=== PATIENT | male | born 1940 | race Caucasian/White ===

== ENCOUNTER 2018-08-28 17:27 | Inpatient (IN) | payer MEDICARE, OTHER ==
[2018-08-28] MEDS ORDERED: SODIUM CHLORIDE 0.9% 1,000 ML IV ONE (17:48)
[2018-08-28] MEDS ORDERED: FAMOTIDINE 20 MG/2 ML VIAL IV STA (18:05)
--- NOTE | 2018-08-28 18:13 | ED ---
URI HPI - General Chief Complaint: Upper Respiratory Infection Stated Complaint: Abd Pain, Chest Pain Time Seen by Provider: 08/28/18 17:37 Source: patient Mode of arrival: ambulatory Limitations: no limitations - History of Present Illness Initial Comments: 78-year-old male patient presents to the emergency department today for evaluation of cough and midepigastric abdominal pain. Patient states that for the last week he has been sick with upper respiratory symptoms including nasal drainage, cough, and congestion. Patient states that his cough has been worsening. States he is coughing up yellow sputum. Patient states he did see his primary care physician on was given a prescription for Mucinex D and methylprednisolone dosepak. Patient states that symptoms have not improved at all. Patient states he has had chills and is felt feverish but has not checked his temperature. States that he is now having discomfort to his midepigastric region and increase in his acid reflux. She denies any radiation of the pain to his back. He denies any vomiting but states he is unable to eat or drink. He states he is feeling dehydrated. Decreased urine output from this. Patient denies any recent rash, shortness breath, chest pain, numbness, tingling, dizziness, weakness, headache, visual changes, or any other complaints. - Related Data Home Medications Medication Instructions Recorded Confirmed Carvedilol [Coreg] 3.125 mg PO BID 03/24/14 08/28/18 Enalapril [Vasotec] 5 mg PO DAILY 03/24/14 08/28/18 Oxybutynin Xl [Ditropan XL] 5 mg PO DAILY 03/24/14 08/28/18 Atorvastatin [Lipitor] 20 mg PO DAILY 08/28/18 08/28/18 guaiFENesin-DM 600/30MG [Mucinex 1 tab PO Q12HR 08/28/18 08/28/18 Dm] methylPREDNISolone [Medrol Dose See Taper PO DIRECTED 08/28/18 08/28/18 Pack] Allergies Allergy/AdvReac Type Severity Reaction Status Date / Time Sulfa (Sulfonamide Allergy Rash/Hives Verified 08/28/18 17:48 Antibiotics) Review of Systems ROS Statement: Those systems with pertinent positive or pertinent negative responses have been documented in the HPI. ROS Other: All systems not noted in ROS Statement are negative. Past Medical History Past Medical History: Cancer, Hypertension, Prostate Disorder, Seizure Disorder , Vascular Disorder Additional Past Medical History / Comment(s): seizure in 1990 and 1992 none since then and no meds at this time History of Any Multi-Drug Resistant Organisms: None Reported Past Surgical History: Back Surgery, Joint Replacement, Orthopedic Surgery, Prostate Surgery Additional Past Surgical History / Comment(s): bilat knee replacement and prostate removed for cancer Past Anesthesia/Blood Transfusion Reactions: No Reported Reaction Past Psychological History: No Psychological Hx Reported Smoking Status: Former smoker Past Alcohol Use History: Rare Past Drug Use History: None Reported - Past Family History Father Family Medical History: Hypertension Additional Family Medical History / Comment(s): of stroke General Exam Limitations: no limitations General appearance: alert, in no apparent distress, other (This is a well- developed, well-nourished elderly male patient in no acute distress. Vital signs upon presentation are temperature 98.2F, pulse 85, respirations 18, blood pressure 148/85, pulse ox 94% on room air.) Eye exam: Present: normal appearance, PERRL, EOMI. Absent: scleral icterus, conjunctival injection, periorbital swelling ENT exam: Present: normal exam, normal oropharynx, mucous membranes moist, TM's normal bilaterally Respiratory exam: Present: normal lung sounds bilaterally. Absent: respiratory distress, wheezes, rales, rhonchi, stridor Cardiovascular Exam: Present: regular rate, normal rhythm, normal heart sounds. Absent: systolic murmur, diastolic murmur, rubs, gallop, clicks GI/Abdominal exam: Present: soft, normal bowel sounds. Absent: distended, tenderness, guarding, rebound, rigid Neurological exam: Present: alert, oriented X3, CN II-XII intact Psychiatric exam: Present: normal affect, normal mood Skin exam: Present: warm, dry, intact, normal color. Absent: rash Course Vital Signs 08/28/18 08/28/18 08/28/18 17:29 18:49 18:51 Temperature 98.2 F 98.8 F Pulse Rate 85 75 Respiratory 18 18 Rate Blood Pressure 148/85 134/104 O2 Sat by Pulse 94 L 96 98 Oximetry 08/28/18 08/28/18 08/28/18 19:01 20:00 21:07 Temperature 98.5 F Pulse Rate 75 80 Respiratory 20 16 Rate Blood Pressure 134/107 125/77 115/77 O2 Sat by Pulse 93 L 95 Oximetry Medical Decision Making - Medical Decision Making 78 year-old male patient presents to the emergency department today for complaints of cough, shortness of breath, and sputum production. Physical examination did reveal clear equal lung sounds. Labs reviewed and did reveal elevated white blood cell count at 11.6. Chest x-ray was obtained and did show a subtle developing pneumonia. Given patient's age and symptoms will admit for IV antibiotics. We will provide IV steroids. - Lab Data Result diagrams: 08/28/18 18:00 08/28/18 18:00 Lab Results 08/28/18 08/28/18 08/28/18 Range/Units 18:00 18:00 18:00 WBC 11.4 H (3.8-10.6) k/uL RBC 4.65 (4.30-5.90) m/uL Hgb 14.5 (13.0-17.5) gm/dL Hct 42.9 (39.0-53.0) % MCV 92.3 (80.0-100.0) fL MCH 31.2 (25.0-35.0) pg MCHC 33.8 (31.0-37.0) g/dL RDW 13.5 (11.5-15.5) % Plt Count 306 (150-450) k/uL Neutrophils % 82 % Lymphocytes % 9 % Monocytes % 6 % Eosinophils % 1 % Basophils % 0 % Neutrophils # 9.4 H (1.3-7.7) k/uL Lymphocytes # 1.0 (1.0-4.8) k/uL Monocytes # 0.7 (0-1.0) k/uL Eosinophils # 0.1 (0-0.7) k/uL Basophils # 0.0 (0-0.2) k/uL PT (9.0-12.0) sec INR (<1.2) APTT (22.0-30.0) sec Sodium 138 (137-145) mmol/L Potassium 4.5 (3.5-5.1) mmol/L Chloride 105 (98-107) mmol/L Carbon Dioxide 25 (22-30) mmol/L Anion Gap 8 mmol/L BUN 23 H (9-20) mg/dL Creatinine 0.67 (0.66-1.25) mg/dL Est GFR (CKD-EPI)AfAm >90 (>60 ml/min/1.73 sqM) Est GFR (CKD-EPI)NonAf >90 (>60 ml/min/1.73 sqM) Glucose 127 H (74-99) mg/dL Plasma Lactic Acid Tin (0.7-2.0) mmol/L Calcium 9.7 (8.4-10.2) mg/dL Total Bilirubin 0.8 (0.2-1.3) mg/dL AST 25 (17-59) U/L ALT 34 (21-72) U/L Alkaline Phosphatase 71 (38-126) U/L Troponin I (0.000-0.034) ng/mL Total Protein 7.3 (6.3-8.2) g/dL Albumin 4.3 (3.5-5.0) g/dL Influenza Type A RNA Not Detected (Not Detectd) Influenza Type B (PCR) Not Detected (Not Detectd) 08/28/18 08/28/18 08/28/18 Range/Units 18:00 18:00 18:00 WBC (3.8-10.6) k/uL RBC (4.30-5.90) m/uL Hgb (13.0-17.5) gm/dL Hct (39.0-53.0) % MCV (80.0-100.0) fL MCH (25.0-35.0) pg MCHC (31.0-37.0) g/dL RDW (11.5-15.5) % Plt Count (150-450) k/uL Neutrophils % % Lymphocytes % % Monocytes % % Eosinophils % % Basophils % % Neutrophils # (1.3-7.7) k/uL Lymphocytes # (1.0-4.8) k/uL Monocytes # (0-1.0) k/uL Eosinophils # (0-0.7) k/uL Basophils # (0-0.2) k/uL PT 10.6 (9.0-12.0) sec INR 1.0 (<1.2) APTT 23.2 (22.0-30.0) sec Sodium (137-145) mmol/L Potassium (3.5-5.1) mmol/L Chloride (98-107) mmol/L Carbon Dioxide (22-30) mmol/L Anion Gap mmol/L BUN (9-20) mg/dL Creatinine (0.66-1.25) mg/dL Est GFR (CKD-EPI)AfAm (>60 ml/min/1.73 sqM) Est GFR (CKD-EPI)NonAf (>60 ml/min/1.73 sqM) Glucose (74-99) mg/dL Plasma Lactic Acid Tin 1.0 (0.7-2.0) mmol/L Calcium (8.4-10.2) mg/dL Total Bilirubin (0.2-1.3) mg/dL AST (17-59) U/L ALT (21-72) U/L Alkaline Phosphatase (38-126) U/L Troponin I <0.012 (0.000-0.034) ng/mL Total Protein (6.3-8.2) g/dL Albumin (3.5-5.0) g/dL Influenza Type A RNA (Not Detectd) Influenza Type B (PCR) (Not Detectd) - Radiology Data Radiology results: report reviewed, image reviewed X-ray of the chest is obtained. Report was reviewed in its entirety. Impression by Dr. Roland shows subsegmental atelectasis at the bases, correlate to exclude pneumonia. Follow-up is recommended. Disposition Clinical Impression: Pneumonia Disposition: ADMITTED IP TO THIS [facility] Condition: Serious Decision to Admit Reason: Admit from EC Decision Date: 08/28/18 Decision Time: 19:42
[2018-08-28 18:16] LABS: Basophils % (A) 0 %; Eosinophils # (A) 0.1 k/uL (0-0.7); Eosinophils % (A) 1 %; HCT 42.9 % (39.0-53.0); HGB 14.5 gm/dL (13.0-17.5); Lymphocytes % (A) 9 %; MCH 31.2 pg (25.0-35.0); MCHC 33.8 g/dL (31.0-37.0); MCV 92.3 fL (80.0-100.0); Mean Platelet Volume 6.6; Monocytes # (A) 0.7 k/uL (0-1.0); Monocytes % (A) 6 %; Neutrophils # (A) 9.4 k/uL (1.3-7.7); Neutrophils % (A) 82 %; Platelet Count 306 k/uL (150-450); RBC 4.65 m/uL (4.30-5.90); RDW 13.5 % (11.5-15.5); WBC 11.4 k/uL (3.8-10.6)
[2018-08-28 18:27] LABS: Partial Thromboplastin Time 23.2 sec (22.0-30.0); Prothrombin Time 10.6 sec (9.0-12.0)
[2018-08-28 18:28] LABS: ALT 34 U/L (21-72); AST 25 U/L (17-59); Albumin 4.3 g/dL (3.5-5.0); Alkaline Phosphatase 71 U/L (38-126); Anion Gap 8 mmol/L; Blood Urea Nitrogen 23 mg/dL (9-20); Calcium 9.7 mg/dL (8.4-10.2); Carbon Dioxide 25 mmol/L (22-30); Chloride 105 mmol/L (98-107); Glucose 127 mg/dL (74-99); Potassium 4.5 mmol/L (3.5-5.1); Sodium 138 mmol/L (137-145); Total Bilirubin 0.8 mg/dL (0.2-1.3); Total Protein 7.3 g/dL (6.3-8.2)
--- NOTE | 2018-08-28 18:59 | XR ---
EXAMINATION TYPE: XR chest 2V DATE OF EXAM: 08/28/2018 COMPARISON: Prior chest x-ray 03/21/2014 HISTORY: Cough TECHNIQUE: Frontal and lateral views of the chest are obtained. FINDINGS: Patchy basilar density is noted. Heart is stable in size accounting for patient rotation. No evident pneumothorax. Postop change noted to the left shoulder. Arthropathy present in the right s houlder with probable chronic rotator cuff tear, shoulder is high riding. Aorta is dense. IMPRESSION: There is subsegmental atelectasis at the lung bases, correlate to exclude pneumonia. Fol low-up is recommended.
[2018-08-28] MEDS ORDERED: PNEUMONIA PROTOCOL UTILIZED 1 EACH MISC PO PRN (19:38)
[2018-08-28] MEDS ORDERED: methylPREDNISolone SOD SUCCI 125 MG/2 ML VIAL IV STA (19:41)
[2018-08-28] MEDS ORDERED: AZITHROMYCIN 500 MG in SODIUM CHLORIDE 0.9% 250 ML IVPB STA (19:43)
[2018-08-28] MEDS: SODIUM CHLORIDE 0.9% 1,000 ML IV SCH (20:08)
[2018-08-28] MEDS: guaiFENesin-DM 600/30MG 1 EACH TAB.ER.12H PO SCH (21:56)
[2018-08-28 23:14] VITALS: RESP 20
[2018-08-28] MEDS: methylPREDNISolone SOD SUCCI 125 MG/2 ML VIAL IV SCH (23:33)
[2018-08-29] MEDS: methylPREDNISolone SOD SUCCI 125 MG/2 ML VIAL IV SCH ×2 (06:04→11:16)
[2018-08-29 07:19] VITALS: BP 122/65; PULSE 75; TEMP 98.7
[2018-08-29] MEDS ORDERED: CARVEDILOL 3.125 MG TAB PO SCH (07:30)
[2018-08-29] MEDS: guaiFENesin-DM 600/30MG 1 EACH TAB.ER.12H PO SCH (07:42)
[2018-08-29] MEDS: SODIUM CHLORIDE 0.9% 1,000 ML IV SCH (07:43)
--- NOTE | 2018-08-29 08:04 | XR ---
EXAMINATION TYPE: XR chest 2V DATE OF EXAM: 08/29/2018 HISTORY: pneumonia. REFERENCE: Previous study dated 08/28/2018. FINDINGS: There is a left shoulder prosthesis in place. The lungs are overinflated. Heart size is normal. There is bibasilar atelectasis. I suspect small eff usions. IMPRESSION: NO INTERVAL CHANGE IN THE APPEARANCE OF THE CHEST.
[2018-08-29] MEDS ORDERED: LISINOPRIL 10 MG TAB PO SCH (09:00)
[2018-08-29] MEDS ORDERED: AZITHROMYCIN 500 MG TAB PO SCH (09:00)
[2018-08-29] MEDS ORDERED: ATORVASTATIN 20 MG TAB PO SCH (09:00)
[2018-08-29] MEDS ORDERED: OXYBUTYNIN XL 5 MG TAB.ER.24 PO SCH (09:00)
[2018-08-29] MEDS ORDERED: PANTOPRAZOLE 40 MG/10 ML VIAL IVP ONE (11:17)
--- NOTE | 2018-08-29 12:38 | P.HPIM ---
History of Present Illness 78-year-old pleasant gentleman came in to ER with compensative mid epigastric abdominal burning sensation patient was also having some uremic symptoms with the cough list with sputum production patient was given Z-Eddy without any significant improvement in symptoms patient had a chest x-ray showed atelectasis patient doesn't have any fevers. Patient was started on prednisone as well which is probably responsible for his acid reflux. Chest x-ray was done which showed atelectasis no evidence of pneumonia. I believe patient has bronchitis since he didn't respond to azithromycin although there is no evidence of Bactrim bronchitis because of continued symptoms all discharge him on Ceftin for 5 days. Patient will prescribed Prilosec as well there is no evidence of pneumonia at this time patient will be asked to do incentive spirometry at home for atelectasis. Patient denied any shortness of breath patient doesn't have any wheezing on exam. Patient was never diagnosed with COPD patient used to smoke 40 years ago. Review of Systems REVIEW OF SYSTEMS: CONSTITUTIONAL: No fever, no malaise, no fatigue. HEENT: No recent visual problems or hearing problems. Denied any sore throat. CARDIOVASCULAR: No chest pain, orthopnea, PND, no palpitations, no syncope. PULMONARY: No shortness of breath, no hemoptysis. GASTROINTESTINAL: No diarrhea, NEUROLOGICAL: No headaches, no weakness, no numbness. HEMATOLOGICAL: Denies any bleeding or petechiae. GENITOURINARY: Denies any burning micturition, frequency, or urgency. MUSCULOSKELETAL/RHEUMATOLOGICAL: Denies any joint pain, swelling, or any muscle pain. ENDOCRINE: Denies any polyuria or polydipsia. The rest of the 14-point review of systems is negative. Past Medical History Past Medical History: Cancer, Hypertension, Prostate Disorder, Seizure Disorder , Vascular Disorder Additional Past Medical History / Comment(s): seizure in 1990 and 1992 none since then and no meds at this time History of Any Multi-Drug Resistant Organisms: None Reported Past Surgical History: Back Surgery, Joint Replacement, Orthopedic Surgery, Prostate Surgery Additional Past Surgical History / Comment(s): bilat knee replacement and prostate removed for cancer Past Anesthesia/Blood Transfusion Reactions: No Reported Reaction Past Psychological History: No Psychological Hx Reported Smoking Status: Former smoker Past Alcohol Use History: Rare Past Drug Use History: None Reported - Past Family History Father Family Medical History: Hypertension Additional Family Medical History / Comment(s): of stroke Medications and Allergies Home Medications Medication Instructions Recorded Confirmed Type Carvedilol [Coreg] 3.125 mg PO BID 03/24/14 08/28/18 History Oxybutynin Xl [Ditropan XL] 5 mg PO DAILY 03/24/14 08/28/18 History Atorvastatin [Lipitor] 20 mg PO DAILY 08/28/18 08/28/18 History guaiFENesin-DM 600/30MG [Mucinex 1 tab PO Q12HR 08/28/18 08/28/18 History Dm] methylPREDNISolone [Medrol Dose See Taper PO DIRECTED 08/28/18 08/28/18 History Pack] Cefuroxime Axetil [Ceftin] 500 mg PO BID 5 Days #10 tab 08/29/18 Rx Losartan [Cozaar] 25 mg PO DAILY #30 tab 08/29/18 Rx Omeprazole [PriLOSEC] 40 mg PO AC-BRKFST #14 capsule. 08/29/18 Rx Allergies Allergy/AdvReac Type Severity Reaction Status Date / Time Sulfa (Sulfonamide Allergy Rash/Hives Verified 08/28/18 17:48 Antibiotics) Physical Exam Vitals: Vital Signs Temp Pulse Pulse Resp BP BP Pulse Ox 08/29/18 06:00 98.7 F 75 20 122/65 92 L 08/28/18 21:45 98.4 F 82 20 132/76 94 L 08/28/18 21:07 98.5 F 80 16 115/77 95 08/28/18 20:00 75 20 125/77 93 L 08/28/18 19:01 134/107 08/28/18 18:51 98.8 F 75 18 134/104 98 08/28/18 18:49 96 08/28/18 17:29 98.2 F 85 18 148/85 94 L Intake and Output 08/28/18 08/29/18 08/29/18 22:59 06:59 14:59 Intake Total 300 100 Balance 300 100 Intake: Oral 300 100 Other: # Voids 1 2 Weight 94.256 kg PHYSICAL EXAMINATION: GENERAL: The patient is alert and oriented x3, not in any acute distress. Well developed, well nourished. HEENT: Pupils are round and equally reacting to light. EOMI. No scleral icterus. No conjunctival pallor. Normocephalic, atraumatic. No pharyngeal erythema. No thyromegaly. CARDIOVASCULAR: S1 and S2 present. No murmurs, rubs, or gallops. PULMONARY: Chest is clear to auscultation, no wheezing or crackles. ABDOMEN: Soft, nontender, nondistended, normoactive bowel sounds. No palpable organomegaly. MUSCULOSKELETAL: No joint swelling or deformity. EXTREMITIES: No cyanosis, clubbing, or pedal edema. NEUROLOGICAL: Gross neurological examination did not reveal any focal deficits. SKIN: No rashes. Results CBC & Chem 7: 08/28/18 18:00 08/28/18 18:00 Labs: Abnormal Lab Results - Last 24 Hours (Table) 08/28/18 08/28/18 Range/Units 18:00 18:00 WBC 11.4 H (3.8-10.6) k/uL Neutrophils # 9.4 H (1.3-7.7) k/uL BUN 23 H (9-20) mg/dL Glucose 127 H (74-99) mg/dL Thrombosis Risk Factor Assmnt - Choose All That Apply Any of the Below Risk Factors Present?: Yes Each Factor Represents 1 point: Obesity (BMI >25) Other Risk Factors: Yes Each Risk Factor Represents 3 Points: Age 75 years or older Other congenital or acquired thrombophilia - If yes, enter type in comment: No Thrombosis Risk Factor Assessment Total Risk Factor Score: 4 Thrombosis Risk Factor Assessment Level: Moderate Risk Assessment and Plan Plan: -Epigastric abdominal burning sensation probably secondary secondary to stress ulcerations and gastritis from my systemic steroids he was receiving which was prescribed as an outpatient. Patient will be prescribed Prilosec patient can complete his Medrol Dosepak patient doesn't have any COPD exacerbation at this time. -Cough with sputum production: Secondary to bronchitis mostly viral I cannot completely rule out bacterial bronchitis because of his atelectasis cecitis with pneumonia because of which patient will be discharged on Ceftin -Ruled out pneumonia -Leukocytosis secondary to systemic steroids he was receiving at home -Hypertension -Seizure disorder -Benign prostatic hypertrophy Patient will be discharged today follow-up with primary care physician as an outpatient.
--- NOTE | 2018-08-29 12:39 | P.DS ---
Providers Date of admission: 08/28/18 19:42 Attending physician: Sue Zaidi Primary care physician: Blue Gu [place] [facility] Course: Please refer to HPI for further details Patient Condition at Discharge: Serious Plan - Discharge Summary Discharge Rx Participant: No New Discharge Prescriptions: New Cefuroxime Axetil [Ceftin] 500 mg PO BID 5 Days #10 tab Losartan [Cozaar] 25 mg PO DAILY #30 tab Omeprazole [PriLOSEC] 40 mg PO AC-BRKFST #14 capsule. Albuterol Inhaler [Ventolin Hfa Inhaler] 1 - 2 puff INHALATION Q6HR PRN #1 inhaler PRN Reason: Shortness Of Breath Or Wheezing Continue Carvedilol [Coreg] 3.125 mg PO BID Oxybutynin Xl [Ditropan XL] 5 mg PO DAILY methylPREDNISolone [Medrol Dose Pack] See Taper PO DIRECTED guaiFENesin-DM 600/30MG [Mucinex Dm] 1 tab PO Q12HR Atorvastatin [Lipitor] 20 mg PO DAILY Discontinued Enalapril [Vasotec] 5 mg PO DAILY Discharge Medication List Carvedilol [Coreg] 3.125 mg PO BID 03/24/14 [History] Oxybutynin Xl [Ditropan XL] 5 mg PO DAILY 03/24/14 [History] Atorvastatin [Lipitor] 20 mg PO DAILY 08/28/18 [History] guaiFENesin-DM 600/30MG [Mucinex Dm] 1 tab PO Q12HR 08/28/18 [History] methylPREDNISolone [Medrol Dose Pack] See Taper PO DIRECTED 08/28/18 [History ] Albuterol Inhaler [Ventolin Hfa Inhaler] 1 - 2 puff INHALATION Q6HR PRN #1 inhaler 08/29/18 [Rx] Cefuroxime Axetil [Ceftin] 500 mg PO BID 5 Days #10 tab 08/29/18 [Rx] Losartan [Cozaar] 25 mg PO DAILY #30 tab 08/29/18 [Rx] Omeprazole [PriLOSEC] 40 mg PO AC-BRKFST #14 capsule. 08/29/18 [Rx] Follow up Appointment(s)/Referral(s): Blue Gu DO [Primary Care Provider] - 3 Days Discharge Disposition: HOME SELF-CARE
== END 2018-08-29 13:02 | disposition home or self-care (01) | DRG 202 ==
LOC: EC 17:27 → 4MS4W 19:42
PROVIDERS: ADMIT Internal Medicine; ATTEND Internal Medicine
DX: J40 Bronchitis, not specified as acute or chronic (principal); J98.11 Atelectasis; E11.9 Type 2 diabetes mellitus without complications; E86.0 Dehydration; G40.909 Epilepsy, unspecified, not intractable, without status epilepticus; I10 Essential (primary) hypertension; K21.9 Gastro-esophageal reflux disease without esophagitis; K29.70 Gastritis, unspecified, without bleeding; N40.0 Benign prostatic hyperplasia without lower urinary tract symptoms; T38.0X5A Adverse effect of glucocorticoids and synthetic analogues, initial encounter; Z79.899 Other long term (current) drug therapy; Z82.3 Family history of stroke; Z82.49 Family history of ischemic heart disease and other diseases of the circulatory system; Z87.891 Personal history of nicotine dependence; Z96.653 Presence of artificial knee joint, bilateral; D72.829 Elevated white blood cell count, unspecified; K25.9 Gastric ulcer, unspecified as acute or chronic, without hemorrhage or perforation; Z88.2 Allergy status to sulfonamides; Z90.79 Acquired absence of other genital organ(s)
CPT/HCPCS: 36415; 71046; 80053; 83605; 84484; 85025; 85610; 85730; 87040; 87502; 96361; 96365; 96367; 96375; 99285

== ENCOUNTER → 2019-10-25 | Outpatient (CLI) | payer MEDICARE, OTHER ==
--- NOTE | 2019-10-25 14:19 | US ---
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 non healing wound with swelli ng in right leg, no h/o dvt SIDE PERFORMED: Right TECHNIQUE: The lower extremity deep venous system is examined utilizing real time linear array sonog [place] with graded compression, doppler sonography and color-flow sonography. VESSELS IMAGED: External Iliac Vein (EIV) Common Femoral Vein Deep Femoral Vein Greater Saphenous Vein * Femoral Vein Popliteal Vein Small Saphenous Vein * Proximal Calf Veins (* superficial vessels) Right Leg: Appears negative for DVT Grayscale, color doppler, spectral doppler imaging performed of the deep veins of the right lower ext remity. There is normal flow, compressibility, vascular waveforms. IMPRESSION: No ultrasound evidence for acute DVT in the right lower extremity.
== END | disposition home or self-care (01) ==
LOC: RADUSWWP 13:46
PROVIDERS: ATTEND Thoracic Surgery (Cardiothoracic Vascular Surgery)
DX: I87.311 Chronic venous hypertension (idiopathic) with ulcer of right lower extremity (principal); L97.312 Non-pressure chronic ulcer of right ankle with fat layer exposed